=== PATIENT | male | born 1950 | race Native Hawaiian/Other Pacific Islander ===

== ENCOUNTER 2018-05-11 12:08 | Outpatient (CLI) | payer OTHER ==
[~2018-05-11 12:08] MED LIST: CARV25TA PO; CITALOPRAM40 MG PO; CLON1TAB18 PO; ESOMEPRAZOLE PO; ISORDIL5 MG PO; LINZESS72 MCG PO; LOPERAMIDE2 MG PO; MEDI-SELTZER PO; MEMANTINE PO; MILK OF MA400 MG/5 M PO; NORCO 10/325***1 TAB PO; PRAZOSIN PO; QUETIAPINE PO; RANI150T78 PO; RESTORIL7.5 MG PO; ROSUVASTATIN CA10 MG PO; TIZANIDINE PO; TRAZODONE PO; VASCEPA1 GM PO
== END 2018-05-11 13:48 | disposition short-term general hospital (02) ==
LOC: AMB 12:08
DX: I69.818 Other symptoms and signs involving cognitive functions following other cerebrovascular disease (principal); F01.51 Vascular dementia, unspecified severity, with behavioral disturbance; F10.27 Alcohol dependence with alcohol-induced persisting dementia; K56.699 Other intestinal obstruction unspecified as to partial versus complete obstruction; F10.21 Alcohol dependence, in remission; F13.21 Sedative, hypnotic or anxiolytic dependence, in remission; I10 Essential (primary) hypertension; E78.49 Other hyperlipidemia; R41.82 Altered mental status, unspecified; G89.29 Other chronic pain; E11.9 Type 2 diabetes mellitus without complications; Z91.81 History of falling
CPT/HCPCS: A0425; A0429